=== PATIENT | male | born 1970 | race Caucasian/White ===

== ENCOUNTER 2016-08-22 05:35 | Day surgery (SDC) | payer OTHER ==
[~2016-08-22] VITALS: Ht 162.6 cm; Wt 65.0 kg
[2016-08-22] VITALS (9 sets, daily range): BP systolic 115–127; BP diastolic 75–93; PULSE 65–77; RESP 12–18; O2SAT 96–100
[~2016-08-22 05:35] MED LIST: Lactated Ringer's 1,000 ML IV ONE
[2016-08-22] MEDS ORDERED: Dexamethasone 4 mg/mL Inj ONE (05:36)
[2016-08-22] MEDS ORDERED: Propofol 10,000 mCg/mL 20 mL Inj ONE (05:36)
[2016-08-22] MEDS ORDERED: Phenylephrine 10,000 mCg/mL Inj ONE (05:36)
[2016-08-22] MEDS ORDERED: fentaNYL-PF 50 mCg/mL 2 mL Inj ONE (05:36)
[2016-08-22] MEDS ORDERED: MeTOProlol 1 mg/mL 5 mL Inj ONE (05:36)
[2016-08-22] MEDS ORDERED: MetoCLOpramide 5 mg/mL 2 mL Inj ONE (05:36)
[2016-08-22] MEDS ORDERED: Ondansetron 2 mg/mL 2 mL Inj ONE (05:36)
[2016-08-22] MEDS ORDERED: Acetaminophen IV 1,000 MG in IV Premix 1 EACH IV ONE (06:00)
[2016-08-22] MEDS ORDERED: CeFAZolin 2 Gm/50 mL D5W IV Premix IV ONE (06:00)
[2016-08-22] MEDS ORDERED: levoFLOXacin 500 mg/100 mL D5W Premix IV ONE (07:19)
[2016-08-22] MEDS ORDERED: Iopamidol-300 50 mL Inj IV ONE (07:40)
[2016-08-22] MEDS ORDERED: Lactated Ringer's 500 ML IV PRN (07:54)
[2016-08-22] MEDS ORDERED: Lactated Ringer's 1,000 ML IV SCH (07:54)
--- NOTE | 2016-08-22 07:54 | PCM.HPANE ---
Patient Data Surgeon Admitting Provider: Attending Provider:Dante Carbajal MD Primary Care Physician:Karen Lee DO Other Provider:Long Ellis Anesthesia Reason for Visit Left Kidney Stone Ht/WT & BMI Height (Feet): 5 Height (Inches): 4.00 Weight (Kilograms): 65 Body Mass Index 24.00 Allergies Coded Allergies: Penicillins (Verified Allergy, Intermediate, Rash, 08/02/16) adhesive tape (Verified Allergy, Unknown, rash from tape used at 07/2016 surgery, 08/19/16) Past Anesthesia History Anesthesia History: Denies:: Anesthesia Reactions Diabetes History Hx Diabetes?: No MRSA MRSA: No Medications Hypertension Medication: No Home Meds Incl Beta Susan: No Unable to Obtain Active Prescriptions or Reported Meds History History of ENT Problems?: Yes Teeth Condition: Missing Teeth Broken Teeth Hx of Heart Problems?: No Cardiovascular History: Denies:: AICD Edema Heart Murmur Hypertension Irregular Heartbeat Pacemaker Hx of Respiratory Problem?: No Respiratory History: Denies:: Asthma COPD Emphysema Oxygen Administration Use of C-PAP Machine Use of Inhalers / NEBS Hx Neurologic Problems?: No Neurological History: Denies:: CVA Headaches Multiple Sclerosis Parkinson's Disease Seizures TIA Hx of GI Problems?: No Gastrointestinal History: Denies:: Gastroesphageal Reflux Gastrointestinal Bleeding Heartburn Hiatal Hernia Liver Disease Hx of Problems?: Yes Genitourinary History: Positive for:: Kidney Stones (left stone current admission problem- surg here 08/03) HX of Peritoneal Dialysis: No Male Hx: Denies:: Prostate Problems Skin History: Denies:: History Skin Disorders? Pressure Ulcers Hx Musculoskeletal Problems?: No Musculoskeletal History: Denies:: Fibromyalgia Joint Replacement Musculoskeletal Trauma Myasthenia Gravis Osteoarthritis Hx of Psycho/Social Problems?: Yes (etoh abuse) Hx Surgeries?: Yes (c-spine fusion, ureteral stent) Hx Any Other Health Problems?: Yes Other History: Denies:: Cancer Thyroid Disease History Blood Transfusions: Positive for:: Accept Blood Products? Denies:: Blood Transfusions Hx Diabetes: No Hx Alcohol Use: YesHx Substance Use: No Smoking Status: Former Smoker Have You Smoked inLast 12 mo: No Stop/Bang S-Snoring: Do You Snore Loudly: No T-Tired: feel tired, fatigued: No O-Obsered: Observed not breath: No P-Blood Pressure: treated: No B- Body Mass Index > 35 kg/m2: No A- Age over 50: No N- Neck Large Circumference: No G- Gender Male: Yes GAEL Total Score: 1 Risk Assessment Category Category 1A: Patient has history of documented sleep apnea, and HAS NOT received any narcotic, sedative or anesthesia administration during this stay. Category 1B: Patient has history of documented sleep apnea, and HAS received any narcotic , sedative or anesthesia administration during this stay Category 2: Patient has SUSPECTED Obstructive Sleep Apnea, and HAS received any narcotic , sedative or anesthesia administration during this stay. Category 3: Patient has SUSPECTED Obstructive Sleep Apnea and HAS NOT received narcotic, sedative or anesthesia administration during this stay. Category 4: Outpatient in Procedural Areas with known sleep apnea or who screen positive for High Risk via the STOP/BANG questionnaire. Exam Exam Vital Signs Vital Signs Date Time Temp Pulse Resp B/P Pulse Ox O2 Delivery O2 Flow Rate FiO2 08/22/16 05:52 35.7 70 14 115/75 98 Room Air General Appearance: Alert, Oriented X3, Cooperative, No Acute Distress HEENT/AIRWAY: MP 2 Lungs: Clear to Auscultation, Normal Air Movement Heart: Exam Unremarkable, Regular Rate/Rhythm, No Murmurs/Rubs/Gallops Meds/Labs/Diagnostics Admission Meds Current Medications Acetaminophen/ Premix (Tylenol IV/IV Premix) 100 ml @ 400 mls/hr PREOP ONCE IV Last administered on 08/22/16t 06:02; Start 08/22/16 at 06:00; Stop at 06:14; Status DC Plan Impression Patient chart reviewed, patient interviewed and anesthestic plan with risks, benefits, and alternatives discussed, and informed consent obtained. NPO Status: 08/21@2100, water @2100 ASA Physical Status: ASA2 Mod Systemic Disease Anesthetic Plan: GA Bene/Risks/Altern/Consents: Yes HP Complete Prior to Induction: Yes Oscar Martinez MD Aug 22, 2016 06:56
[2016-08-22] MEDS ORDERED: Phenylephrine 10,000 mCg/mL Inj IVPUSH PRN (07:55)
[2016-08-22] MEDS ORDERED: MetoCLOpramide 5 mg/mL 2 mL Inj IVPUSH PRN (07:55)
[2016-08-22] MEDS ORDERED: HYDROmorphone 1 mg/mL Inj IVPUSH PRN (07:55)
[2016-08-22] MEDS ORDERED: fentaNYL-PF 50 mCg/mL 2 mL Inj IVPUSH PRN (07:55)
[2016-08-22] MEDS ORDERED: Labetalol 5 mg/mL 4 mL Inj IV PRN (07:55)
[2016-08-22] MEDS ORDERED: Atropine 0.4 mg/mL Inj IVPUSH PRN (07:55)
[2016-08-22] MEDS ORDERED: hydrALAZINE 20 mg/mL Inj IVPUSH PRN (07:55)
[2016-08-22] MEDS ORDERED: EPHEDrine Sulfate 50 mg/mL Inj IVPUSH PRN (07:55)
[2016-08-22] MEDS ORDERED: Ondansetron 2 mg/mL 2 mL Inj IVPUSH PRN (07:55)
[2016-08-22] MEDS ORDERED: Belladonna Alk-Opium 60 mg Rectal Suppository RECTAL ONE (09:15)
[2016-08-22] MEDS ORDERED: Furosemide 10 mg/mL 2 mL Inj IV ONE (09:25)
[2016-08-22] MEDS ORDERED: Furosemide 10 mg/mL 2 mL Inj ONE (09:26)
--- NOTE | 2016-08-22 10:13 | PCM.ANEP1 ---
Post Anesthesia Phase 1 PACU Phase 1 Assessment Vital Signs Vital Signs Date Time Temp Pulse Resp B/P Pulse Ox O2 Delivery O2 Flow Rate FiO2 08/22/16 09:55 67 18 117/76 98 Room Air 08/22/16 09:52 36.4 70 14 119/79 98 Room Air 08/22/16 09:45 36.4 74 14 127/84 96 Room Air 08/22/16 09:40 74 13 122/88 96 Room Air 08/22/16 09:35 76 12 124/92 96 Room Air 08/22/16 09:30 74 15 121/93 96 Room Air 08/22/16 09:25 36.4 77 14 126/87 100 Simple Mask 8 08/22/16 05:52 35.7 70 14 115/75 98 Room Air Anesthetic Administered: GA Level of Alertness: Awake, talking YUEN's with Equal Strength: Yes Pain: No Nausea or Vomiting: No Oxygen Delivery: Room Air Lungs: Clear to Auscultation, Normal Air Movement Dermatome Level: Full Sensation Oscar Martinez MD Aug 22, 2016 10:13
--- NOTE | 2016-08-22 10:14 | PCM.ANEP2 ---
Post Anesthesia Evaluation ASA/CMS Post Anesthesia VS in Patient's Normal Range?: Yes Resp Stable; Airway Patent?: Yes CV Function & Hydration Stable: Yes Mental Status Recovered?: Yes Pain control Satisfactory?: Yes N/V Control Satisfactory?: Yes Oscar Martinez MD Aug 22, 2016 10:14
--- NOTE | 2016-08-22 11:05 | OP ---
[address] [address] OPERATIVE REPORT PATIENT: INDRA SMITH : 1970 MR#: [id number] ADMIT: 08/22/2016 JOB ID: [id number] DATE OF SURGERY: 08/22/2016 PREOPERATIVE DIAGNOSIS(ES): 1. Hereditary cystinuria. 2. Left renal calculus. 3. Left indwelling ureteral stent. 4. Functional solitary left kidney. POSTOPERATIVE DIAGNOSIS(ES): 1. Hereditary cystinuria. 2. Left renal calculus. 3. Left indwelling ureteral stent. 4. Functional solitary left kidney. OPERATION PERFORMED: 1. Cystoscopy. 2. Left ureteral stent exchange. 3. Left intrarenal laser lithotripsy. SURGEON: Dante Carbajal MD ANESTHESIOLOGIST: Oscar Martinez MD ANESTHESIA: General. FINDINGS: Penile urethra normal. 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 External sphincter intact. Prostate 3 to 3.5 cm in length with moderately elevated median bar. Bladder is normal other than indwelling left ureteral stent with surrounding erythema and edema. The previously identified obstructing left ureteral calculus was relocated in the lower pole of left kidney. PROCEDURE SUMMARY: The patient was positioned supine and was administered general anesthesia. He was then repositioned in semi-lithotomy with lower abdomen, genitalia, and groin were prepped and draped in sterile fashion. The 22-Indonesian panendoscope was then passed to the lower urinary tract using an alligator grasper the indwelling stent was removed. A 0.35 Vásquez guidewire was then positioned in the left collecting system. The cystoscope was backloaded off from this wire. Next a digital flexible ureteroscope was then advanced over the guidewire under fluoroscopic guidance. The wire was then removed. The pyelography was then performed. Intrarenal endoscopy was then performed starting superiorly and evaluation of each calyx and the stone was identified at the lower pole collecting system. A 200 micron fiber was then selected. The patient and all operating room personnel were then fitted with laser safety eyewear. Lithotripsy was then commenced with excellent stone comminution, although painstaking. Eventually the stone was broken down into very small particles, at most 300 microns in size. Flow was increased and much of the material was cleared from the intrarenal collecting system at that time. Next a 0.35 Glidewire was advanced through the ureteroscope. The ureteroscope was backloaded off the Glidewire. Now, the panendoscope was front-loaded on the Glidewire and over this a 6-Indonesian x 22-32 cm multilength stent was positioned satisfactorily under direct and fluoroscopic guidance. A RETRIEVAL LINE WAS LEFT ATTACHED. The bladder was then drained completely. All instrumentation removed a final time. The patient was repositioned supine, was awakened, transferred to [facility], and transferred to recovery, awake and in stable condition.
== END 2016-08-22 23:59 | disposition home or self-care (01) ==
LOC: SAS 05:35
PROVIDERS: ATTEND Specialist
DX: N20.0 Calculus of kidney (principal); Q60.0 Renal agenesis, unilateral
CPT/HCPCS: 52356; 74420; C1729; C2617; J0131; J1100; J1940; J2370; J2405; J2765; J7120; Q9967